=== PATIENT | male | born 1985 | race Caucasian/White ===

== ENCOUNTER 2023-10-30 11:19 | Emergency (ER) | payer MEDICAID, SELFPAY ==
--- NOTE | 2023-10-30 11:15 | RT.EKG_ITS ---
APPROVED REPORT Exam: Resting ECG Reason for Exam: Chest Pain Patient Location: E HR:75 bpm ECG Measurements Heart Rate 75 AXIS CA 162 P 8 QRSd 96 QRS -6 QT 369 T 17 QTc 414 Conclusion Sinus rhythm...normal P axis, V-rate 60- 99 sinus rhtyhm, normal axis, normal intervals, consider incomplete right bundle branch
[2023-10-30 11:21] VITALS: BP 174/106; PULSE 79; RESP 18; TEMP 36.6; O2SAT 97
[2023-10-30 11:28] VITALS: RESP 18
--- NOTE | 2023-10-30 11:32 | W.ED.GENAD ---
HPI General Date/Time Provider Initiated Documentation: 10/30/23 11:26. HPI Narrative: 38 year-old male presents to ED today by POV/ambulating with a chief complaint of L sided intermittent chest pains with onset for the past 8 months, not having active chest pains- last pain was this morning for 2 minutes. Quality described as sharp, no radiation to hemoptysis, diaphoresis, nausea/vomiting, states the pains last from 2-10 mins, denies shortness of breath on exertion. Severity is described as 9/10. Palliating factors include nothing specific attempted. Provoking factors include nothing specific. Events leading up to the incident/Associated Symptoms: Patient was recently released from incarceration. Patient not anticoagulated. Related Data Home Medications Medication Instructions Recorded Confirmed buprenorphine 8 mg-naloxone 2 mg 1 film sublingual DAILY 10/30/23 10/30/23 sublingual film (Suboxone) quetiapine 100 mg tablet (Seroquel) 100 mg PO DAILY 10/30/23 10/30/23 Allergies Allergy/AdvReac Type Severity Reaction Status Date / Time No Known Allergies Allergy Unverified 10/30/23 11:24 General Stated Complaint: GenMedical TENISHA: 3 Review of Systems All systems reviewed & are unremarkable except as noted in HPI and below Exam Narrative Exam Narrative: GENERAL APPEARANCE: Well-nourished, non-toxic, awake and alert, atraumatic, no acute distress. SKIN: Warm, pink, dry, intact, without rashes/lesions/ulcerations. HEAD: Normocephalic, atraumatic, normal hair distribution for gender/age. EYES: Pupils PERRLA, EOMs intact without nystagmus, normal conjunctiva, no exudates on lids/lashes. ENT: Nares patent, no circumoral cyanosis, no facial swelling NECK: Supple, trachea midline, painless cervical ROM. LUNGS/CHEST: Lungs CTA bilaterally- no rhonchi/rales/wheezes diffusely, non-labored respirations, normal A/P diameter, symmetrical expansion, no chest wall deformity, no tenderness to palpation to focal L4th/5th mid-clavicular area where pain presents. HEART (CV/PV): Regular rate and rhythm without murmur, no peripheral edema, no JVD. ABDOMEN: Soft, non-distended, no guarding, no tenderness. MSK: Normal ROM, no swelling/deformity to bilateral UEs or LEs, moving all extremities without weakness, no cyanosis, spine midline without tenderness, normal curvature. NEURO: Mental Status AAOx4 - alert to person, place, time, events No facial droop, no forehead involvement. Motor: No focal weakness - strength 5/5 in bilateral UEs and LEs, proximal and distal, symmetric. Sensory: sensation intact to light touch globally. Gait normal: patient ambulated without ataxia into ED room. PSYCH: euthymic, cooperative, pleasant, appropriate speech Course Vital Signs Vital signs: Vital Signs Temperature 36.6 C 10/30/23 11:21 Pulse 79 10/30/23 11:21 Respiratory Rate 18 10/30/23 11:21 Blood Pressure 174/106 H 10/30/23 11:21 Pulse Oximetry 97 10/30/23 11:21 Temperature 36.6 C 10/30/23 11:21 Temperature Source Oral 10/30/23 11:21 Pulse 79 10/30/23 11:21 Respiratory Rate 18 10/30/23 11:28 Respiratory Effort Normal 10/30/23 11:30 Respiratory Depth Normal 10/30/23 11:28 Respiratory Pattern Normal 10/30/23 11:28 Blood Pressure 174/106 H 10/30/23 11:21 Blood Pressure Position Sitting 10/30/23 11:21 Pulse Oximetry 97 10/30/23 11:21 Oxygen Delivery Method Room Air 10/30/23 11:21 Oxygen Flow Rate 0 10/30/23 11:21 Medical Decision Making This dictation utilizes [id number] dictation software and may contain unedited grammatical errors. 38 y/o M presents to ED today with a chief complaint of L 4/5th rib space chest pain for 8 months, sharp and lasts 2-10minutes. Denies hemoptysis, palpitations, diaphoresis, shortness of breath with exertion. Patients' medical history: past substance abuse. Family and social history: recent incarceration. Pertinent exam findings / vital signs include LUNGS/CHEST: Lungs CTA bilaterally- no rhonchi/rales/wheezes diffusely, non-labored respirations, normal A/P diameter, symmetrical expansion, no chest wall deformity, no tenderness to palpation to focal L4th/5th mid-clavicular area where pain presents. HEART (CV/PV): Regular rate and rhythm without murmur, no peripheral edema, no JVD. ABDOMEN: Soft, non-distended, no guarding, no tenderness. Differential / pathologies of concern include PE, ACS, costochondritis, pneumonia, pneumothorax. Diagnostic studies of: -EKG, Trope I, D-dimer, CXR, CT Chest wo. - Trop neg, no ACS - D-dimer neg, no PE -CXR shows question pneumothorax vs pneumomediastinum -CT shows no pneumothorax, no pneumomediastinum- negative study. -EKG NSR, normal axis, p waves w/ narrow QRS, no ST changes, normal QTc Interventions of: -none. ED Course/Assessment/Plan: Healthy 38-year-old male presents with left-sided intercostal chest pain for the past 8 months lasting brief minutes and is sharp nature. Cardiac workup is negative, the last time he had the chest pain was this morning with a reliable greater than 6-hour onset, D-dimer is negative I do not suspect PE, there was possibly some motion artifact questioning pneumothorax versus mediastinum in the right lung well away from where the patient's pain is on chest x-ray but CT was negative. Counseled the patient on therapeutic dosing of Tylenol and ibuprofen, trial of Voltaren topical gel to the area, refraining from smoking as costochondritis is likely cause but will come him to follow-up with his PCP for referral to cardiology for baseline studies. Findings not consistent with PE, ACS, PNA, PTX. Disposition of Chest Pain of Uncertain Etiology. Patient verbalized understanding of the plan and return to ED criteria and engaged in shared decision making. Medical Records Medical records reviewed: Yes I reviewed the patient's medical records. Imaging Data Radiologic Study: Imaging: X-Ray Radiologist's impression: EXAM: XR CHEST 2V PA LATERAL CLINICAL HISTORY: chest pain TECHNIQUE: 2D digital imaging was performed of the chest. Two images were obtained. PA and lateral views were obtained. COMPARISON: No exams were available for comparison FINDINGS: MEDIASTINUM: Normal. HEART: Normal. PULMONARY VASCULATURE: Normal. LUNGS: Clear. PLEURAL SPACE: No pleural effusion. There is extension to a contreras of the lucency and border around the right heart in the right hemidiaphragm. This raises a question of a pneumothorax or pneumomediastinum. BONE:Within normal limits for the patient's age. OTHER FINDINGS:Normal. IMPRESSION: 1. Findings suspicious for possible right pneumothorax or pneumomediastinum. Noncontrast CT scan of the chest should be obtained for further evaluation. 2. No focal consolidating infiltrates. Radiologic Study #2: Imaging: CT Scan Radiologist's impression: EXAM: CT CHEST WO CLINICAL HISTORY: ?pneumothorax vs ?pneumomediastinum. TECHNIQUE: Imaging protocol: Axial computed tomography images were obtained and coronal and sagittal reformatted images were created and reviewed. COMPARISON: CR XR CHEST 2V PA LATERAL from 10/30/2023 FINDINGS: Tracheobronchial tree: Patent where visualized. Pulmonary parenchyma: No consolidation or dominant measurable mass. No architectural distortion. Mediastinum and Kinsey: No dominant adenopathy or fluid collection. The esophagus is unremarkable.There is soft tissue seen in the anterior mediastinum most suggestive of residual thymic tissue. Thyroid gland: Unremarkable. Pleura: No effusion or pneumothorax. Heart: The heart is not dilated. No coronary artery calcifications are seen. No pericardial effusion. Aorta: Thoracic aorta non-dilated. Minimal atherosclerosis. Upper abdomen: Unremarkable. Lymph nodes: Within normal limits. Tubes, Catheters, and Lines: None. Soft tissues: Unremarkable. Bones:Within normal limits for the patient's age. IMPRESSION: 1. No acute pulmonary process. No evidence of a pneumothorax or pneumomediastinum. 2. Findings were discussed with the emergency department at 3:15 p.m. on 10/30/2023. Lab Data Lab results reviewed: Yes I reviewed the patient's lab results. Labs: Laboratory Tests Range/Units 10/30/23 12:05 D-Dimer (<500) ng/mlFEU 198 Troponin I (< or =60) ng/L < 50 Quality:SDOH Health Related Social Needs: No Data to Display PFSH All Active Problems (Updated 10/30/23 @ 15:20 by LAURI Costa) Chest pain of uncertain etiology (Acute) Social History Smoking/Tobacco Use Status: Current every day Tobacco Type: cigarettes Smoking risk assessment performed?: Yes Alcohol Intake: former Substance use type: former substance user Housing: house Do you feel safe at home: Yes Do you feel safe in your relationship?: Yes Discharge Plan Disposition Patient Disposition: Home Discharge Details Clinical Impression: Chest pain of uncertain etiology Primary Care Provider: Unknown,Unknown ED Provider: Les Krause Home Meds and New Rx's Prescriptions: No Action buprenorphine-naloxone [Suboxone] 8-2 mg film 1 film sublingual DAILY quetiapine [Seroquel] 100 mg tablet 100 mg PO DAILY Discharge Instructions Instructions: Chest Pain (ED), Pleurisy (ED), Costochondritis (ED) Additional Instructions: You were seen in the emergency department for your intermittent chest pain for the past 8 months that is sharp in nature and located between your intercostal rib spaces on the left side. Your cardiac workup is negative, the workup for pulmonary embolism is negative. Your EKG is completely normal, your chest x-ray questioned a possible pneumothorax versus pneumomediastinum but it was confirmed to be normal on chest CT. Some possible causes of your chest pain include costochondritis and pleurisy which I have attached information on, please use therapeutic dosing of Tylenol (acetamenophen) & Advil (ibuprofen) in an alternating fashion as follows: Take 1000mg of Tylenol every 6 hours without missing doses- that is 4 times per day. Skilled Nursing in between the Tylenol dosings, take 400-600mg of Advil also on a 6 hour schedule, that is also 4 times per day. The daily maximum dosing of Tylenol is 4000mg, and the daily maximum dosing of Advil is 2400mg. This is safe to do for weeks. Please note that some common cold medications & prescription pain medications may contain acetamenophen and you need to read OTC drug labels and factor that in to maximum daily dosings. You may follow-up with your primary care provider and seek a referral to cardiology for baseline studies if you continue to experience chest pain, return to the ED for any severe return of chest pain especially with shortness of breath, shortness of breath on exertion, sweating, near syncope. Referrals: [facility] [Provider Group] (needs to establish PCP) [facility] [Provider Group] (needs to establish PCP)
[2023-10-30 12:31] LABS: Troponin I < 50 ng/L (< or =60)
--- NOTE | 2023-10-30 12:45 | DI.RAD_ITS ---
Exam(s) XR CHEST 2V PA LATERAL EXAM: XR CHEST 2V PA LATERAL CLINICAL HISTORY: chest pain TECHNIQUE: 2D digital imaging was performed of the chest. Two images were obtained. PA and lateral views were obtained. COMPARISON: No exams were available for comparison FINDINGS: MEDIASTINUM: Normal. HEART: Normal. PULMONARY VASCULATURE: Normal. LUNGS: Clear. PLEURAL SPACE: No pleural effusion. There is extension to a contreras of the lucency and border around th e right heart in the right hemidiaphragm. This raises a question of a pneumothorax or pneumomediasti num. BONE:Within normal limits for the patient's age. OTHER FINDINGS:Normal. IMPRESSION: 1. Findings suspicious for possible right pneumothorax or pneumomediastinum. Noncontrast CT scan of the chest should be obtained for further evaluation. 2. No focal consolidating infiltrates. DATA REPOSITORY: RADIATION DOSE DELIVERED:
[2023-10-30 12:53] LABS: D-Dimer 198 ng/mlFEU (<500)
--- NOTE | 2023-10-30 14:52 | DI.CT_ITS ---
Exam(s) CT CHEST WO EXAM: CT CHEST WO CLINICAL HISTORY: ?pneumothorax vs ?pneumomediastinum. TECHNIQUE: Imaging protocol: Axial computed tomography images were obtained and coronal and sagittal reformatted images were created and reviewed. COMPARISON: CR XR CHEST 2V PA LATERAL from 10/30/2023 FINDINGS: Tracheobronchial tree: Patent where visualized. Pulmonary parenchyma: No consolidation or dominant measurable mass. No architectural distortion. Mediastinum and Kinsey: No dominant adenopathy or fluid collection. The esophagus is unremarkable.There is soft tissue seen in the anterior mediastinum most suggestive of residual thymic tissue. Thyroid gland: Unremarkable. Pleura: No effusion or pneumothorax. Heart: The heart is not dilated. No coronary artery calcifications are seen. No pericardial effusion. Aorta: Thoracic aorta non-dilated. Minimal atherosclerosis. Upper abdomen: Unremarkable. Lymph nodes: Within normal limits. Tubes, Catheters, and Lines: None. Soft tissues: Unremarkable. Bones:Within normal limits for the patient's age. IMPRESSION: 1. No acute pulmonary process. No evidence of a pneumothorax or pneumomediastinum. 2. Findings were discussed with the emergency department at 3:15 p.m. on 10/30/2023. RADIATION DOSE DELIVERED: 544.12mGy.cm Total DLP 544.12mGy.cm Total DLP DATA REPOSITORY: All CT scans at this facility are submitted to the National Radiology Data Registry (NRDR) Dose Index Registry (DIR) with the [employer] ([employer]). RADIATION OPTIMIZATION: All CT scans at this facility use at least one of these dose optimization te chniques: automated exposure control; mA and/or kV adjustment per patient size (includes targeted exa ms where dose is matched to clinical indication); or iterative reconstruction.
[2023-10-30 15:23] VITALS: BP 144/87; PULSE 82; O2SAT 97
== END 2023-10-30 15:25 | disposition home or self-care (01) ==
PROVIDERS: Emergency Provider Physician Assistant
DX: R10.12 Left upper quadrant pain (principal); R07.9 Chest pain, unspecified; F17.210 Nicotine dependence, cigarettes, uncomplicated
CPT/HCPCS: 36415; 71250; 93005; 99284; 71046; 84484; 85379; 93010

== ENCOUNTER 2024-05-26 16:17 | Outpatient (REF) | payer MEDICAID, SELFPAY ==
[2024-05-26 18:21] LABS: ALT 30 U/L (16-63); AST 21 U/L (15-37); Albumin 4.1 g/dL (3.4-5.0); Alkaline Phosphatase 99 U/L (46-116); Anion Gap 8.1 mmol/L (3-11); BUN 21 mg/dL (7-18); Bilirubin, Total 0.48 mg/dL (0.2-1.0); CO2 25.9 mmol/L (21.0-32.0); Calcium 9.3 mg/dL (8.5-10.1); Calculated LDL 182 mg/dL (<100); Chloride 103 mmol/L (98-107); Cholesterol 253 mg/dL (<200); Glucose 107 mg/dL (74-106); HDL Cholesterol 44 mg/dL (40-60); Potassium 4.4 mmol/L (3.5-5.1); Sodium 137 mmol/L (136-145); TSH (W/Ref FT4) 1.86 uIU/mL (0.36-3.74); Total Protein 7.7 g/dL (6.4-8.2); Triglyceride 139 mg/dL (<150); Vitamin B12 376 pg/mL (193-986); Vitamin D 25 Total 34.6 ng/mL (30-100)
== END 2024-05-26 16:18 | disposition home or self-care (01) ==
LOC: LBN 16:17
PROVIDERS: Referring Provider Nurse Practitioner Family; Visit Provider Nurse Practitioner Family
DX: Z00.00 Encounter for general adult medical examination without abnormal findings (principal)
CPT/HCPCS: 80053; 80061; 82306; 82607; 84443

== ENCOUNTER → 2024-06-22 10:51 | Emergency (ER) | payer MEDICAID, SELFPAY ==
[2024-06-22 10:52] VITALS: BP 149/89; PULSE 85; RESP 15; TEMP 36.9; O2SAT 97
[2024-06-22 11:00] VITALS: BP 149/89; PULSE 85; RESP 15; TEMP 36.9; O2SAT 97
--- NOTE | 2024-06-22 11:21 | ED.GENADUL_ITS ---
Discharge Plan Disposition Patient Disposition: Home Condition: Stable Discharge Details Clinical Impression: Dental infection Primary Care Provider: None,None ED Provider: Scott Brito Home Meds and New Rx's Prescriptions: New penicillin V potassium 500 mg tablet 500 mg PO QID Qty: 55 0RF Continued buprenorphine-naloxone [Suboxone] 8-2 mg film 1 film sublingual DAILY quetiapine [Seroquel] 100 mg tablet 100 mg PO DAILY lamotrigine 25 mg tablet 50 mg PO DAILY Patient Comments: TAKE TWO TABLETS BY MOUTH EVERY DAY lisdexamfetamine [Vyvanse] 40 mg capsule 40 mg PO DAILY Discharge Instructions Instructions: Dental Pain ED Additional Instructions: Please take full course of antibiotic as prescribed. Your initial dose was provided here in the emergency department today. Your next dose should be this afternoon. Please take ibuprofen and be sure to dose according to the label. Dosing should not exceed 800 mg every 8 hours. Please take acetaminophen (tylenol) - 650mg every 6 hours by mouth as needed for pain. Taking too much Tylenol can harm your liver and lead to liver failure and . Please be sure to dose according to the label. Please contact your dentist to arrange follow-up. Return to the ER immediately for any worsening or new concerning symptoms. HPI General Mode of arrival: ambulatory . Date/Time Provider Initiated Documentation: 06/22/24 11:06 . Limitations to Documentation: no limitations . Information obtained by: patient . HPI Narrative: 38-year-old male smoker presents with chief complaint of dental pain. Patient notes pain in his right lower molar for the past 2 days. Progressive. No modifiers. No associated fever. No swelling. Patient does note chronic dental disease. Related Data Home Medications ?Medication ?Instructions ?Recorded ?Confirmed buprenorphine 8 mg-naloxone 2 mg 1 film sublingual DAILY 10/30/23 06/22/24 sublingual film (Suboxone) quetiapine 100 mg tablet (Seroquel) 100 mg PO DAILY 10/30/23 06/22/24 lamotrigine 25 mg tablet 50 mg PO DAILY 06/22/24 06/22/24 lisdexamfetamine 40 mg capsule 40 mg PO DAILY 06/22/24 06/22/24 (Vyvanse) penicillin V potassium 500 mg 500 mg PO QID #55 tabs 06/22/24 tablet Previous Rx's ?Medication ?Instructions ?Recorded penicillin V potassium 500 mg 500 mg PO QID #55 tabs 06/22/24 tablet Allergies Allergy/AdvReac Type Severity Reaction Status Date / Time No Known Allergies Allergy Unverified 06/22/24 10:54 General Stated Complaint: DentalOral TNEISHA: 4 Review of Systems ENT Ears, Nose, Mouth, and Throat: Reports as per HPI Exam Const General: cooperative and no acute distress HENMT Face and sinus: normal facial exam Mouth: moist mucous membranes Teeth and gingiva: poor dentition and other (Right lower molar with chronic fracture, no fluctuance along gum) Throat: posterior oropharynx normal Other: No trismus Eyes Conjunctivae: normal conjunctivae Sclera: normal sclerae EOM: EOM intact bilaterally Neck Neck: trachea midline, supple and no lymphadenopathy noted Cardio Rate: regular rate and not tachycardic Course Vital Signs Vital signs: Vital Signs Temperature 36.9 C 06/22/24 10:52 Pulse 85 06/22/24 10:52 Respiratory Rate 15 06/22/24 10:52 Blood Pressure 149/89 H 06/22/24 10:52 Pulse Oximetry 97 06/22/24 10:52 Temperature 36.9 C 06/22/24 11:00 Pulse 85 06/22/24 11:00 Respiratory Rate 15 06/22/24 11:00 Respiratory Effort Normal 06/22/24 10:58 Blood Pressure 149/89 H 06/22/24 11:00 Pulse Oximetry 97 06/22/24 11:00 Oxygen Delivery Method Room Air 06/22/24 11:00 Oxygen Flow Rate 0 06/22/24 10:52 Pain Level 8 06/22/24 11:00 Comment 0430 ibuprofen 1000 mg 0630 ibuprofen 1000mg 0900 ibuprofen 800mg 06/22/24 10:52 Medical Decision Making 38-year-old male smoker here with right lower molar dental pain. Patient has chronic dental fracture. No significant swelling or findings consistent with drainable abscess on exam. Plan to initiate treatment with penicillin and have him follow-up with dentist. Offered dental block and patient declined. Patient was provided Tylenol. He has been taking ibuprofen too high of a dose. Patient was instructed how to take ibuprofen and Tylenol safely. Usual customary discharge instructions were reviewed. Quality:SDOH Health Related Social Needs: No Data to Display PFSH All Active Problems Dental infection (Acute) Social History Smoking/Tobacco Use Status: Current every day Tobacco Type: cigarettes Smoking risk assessment performed?: Yes Alcohol Intake: former Substance use type: former substance user Housing: house Do you feel safe at home: Yes Do you feel safe in your relationship?: Yes
[2024-06-22] MEDS: Penicillin V POTASSIUM 500 MG TAB PO (11:22)
[2024-06-22] MEDS: Acetaminophen 325 MG TAB 650 MG PO (11:22)
== END | disposition home or self-care (01) ==
LOC: ER 11:18 → RED 11:30
PROVIDERS: Emergency Provider Student in an Organized Health Care Education/Training Program
DX: R68.84 Jaw pain (principal); K04.7 Periapical abscess without sinus
CPT/HCPCS: 99283